=== PATIENT | male | born 1995 ===

== ENCOUNTER 2025-08-06 23:14 | Emergency (ER) | payer SELFPAY ==
[~2025-08-06] VITALS: Ht 180.3 cm; Wt 77.3 kg
[2025-08-06 23:16] VITALS: BP 141/95; TEMP 97.7; O2SAT 98
== END 2025-08-07 02:05 | disposition left against medical advice (07) ==
LOC: M ED 23:14
DX: Z53.21 Procedure and treatment not carried out due to patient leaving prior to being seen by health care provider (principal)